=== PATIENT | male | born 1970 | race Caucasian/White ===

== ENCOUNTER 2016-12-20 06:15 | Day surgery (SDC) | payer BC ==
[~2016-12-20] VITALS: Ht 172.7 cm; Wt 122.5 kg
[~2016-12-20 06:15] MED LIST: AMBIEN10 MG PO; ELAVIL25 MG PO; HYDROCODONE-APA1 TAB PO
[2016-12-20 07:01] VITALS: BP 126/81; Ht 172.7 cm; Wt 122.5 kg
--- NOTE | 2016-12-20 14:11 | NUR ---
1400--BLOOD PRESSURE'S READING HIGH, CUFF READJUSTED AND INSTRUCTED PT TO KEEP ARM STRAIGHT AND STILL, BP'S READING LOWER. HGNARAYAN RN
--- NOTE | 2016-12-20 15:01 | NUR ---
1500--LEMON NINILCHIK DRINK GIVEN, PT DENIES FURTHER NEEDS. PADMINI RN
--- NOTE | 2016-12-20 19:28 | NUR ---
1740--PT VOIDS, IV DC'D. PADMINI SHEIKH 175--DISCHARGE INSTRUCTIONS GIVEN, PT VERBALIZES UNDERSTANDING. PT OFF UNIT VIA WC. PADMINI SHEIKH
--- NOTE | 2016-12-26 10:04 | HP ---
PATIENT: JULISSA FREEDMAN MEDICAL RECORD: [id number] ACCOUNT: [id number] LOCATION:DEXTER : 70 ADMISSION DATE: 12/20/16 HISTORY AND PHYSICAL EXAMINATION The patient has intractably symptomatic hemorrhoids. He has been seen in the office. A history and physical examination from the office is on the chart. There have been no changes in his history or physical examination. We reviewed the risks, possible complications and alternatives to the procedure. He elects to proceed. TRANSINT:[id number] Voice Confirmation ID: [id number] DOCUMENT ID: [id number] KATIUSKA CLANCY MD at 1004 CC: ISHAAN SMITH MD [id number] DICTATION DATE: 12/20/16 1231 PLANNING LEAD: 12/20/16 1239 [facility] 12/20/16 [id number] [place] [address]
--- NOTE | 2016-12-26 10:04 | OP ---
PATIENT NAME: JULISSA FREEDMAN MEDICAL RECORD: [id number] :70 LOCATION:D.OPS ADMISSION DATE: SURGEON: MALVIN CLANCY MD DATE OF OPERATION: 12/20/2016 PREOPERATIVE DIAGNOSES: 1. Hematochezia. 2. Intractably symptomatic hemorrhoids. 3. Third-degree anal prolapse of the internal hemorrhoids. 4. Skin tag. POSTOPERATIVE DIAGNOSES: 1. Hematochezia. 2. Intractably symptomatic hemorrhoids. 3. Third-degree internal hemorrhoidal prolapse of the anus. 4. Recurrent chronic anal fissure. 5. [place] skin tag. PROCEDURES: 1. Total colonoscopy to cecum. 2. Procedure for prolapse and hemorrhoids. 3. Excision of sentinel skin tag with closure. 4. Lateral internal sphincterotomy. SURGEON: Malvin Clancy MD. SENIOR [employer] SYSTEMS PROGRAMMER: None. BLOOD LOSS: Minimal. ANESTHESIA: General. COMPLICATIONS: None. The risks, possible complications and alternatives to procedure were explained to the patient. He elected to proceed. OPERATIVE COURSE: The patient was conveyed up to the operating room electively on 12/20/2016. General anesthesia was induced by anesthesia staff. The patient was placed in the [place] position. A digital rectal examination was performed. A colonoscope was inserted through the anus. It was easily advanced to the cecum. I slowly withdrew the endoscope. I irrigated and aspirated extensively. I dragged the folds. I used a combination of normal imaging as well as narrow band imaging to visualize the colonic and rectal chen. I noted no polyps and no masses. The endoscope was then withdrawn under direct vision after a retroflexed view of the anus. The patient was then positioned in the lithotomy position. The anus and perianal areas were sterilely prepped and draped. The buttocks were taped laterally. U-shaped anal retractors were placed. A mature recurrent anal fissure was noted at 6 o'clock. The PPH dilator retractor was placed. The retractor was sewn in place to the OPERATIVE REPORT [id number] JULISSA FREEDMAN surrounding with 2-0 silks. A 2-0 Prolene was then applied circumferentially about 1-cm cephalad to the clear retractor. The PPH stapling device was inserted with the anvil cephalad to the pursestring suture, which was then tightened and tied. The stapling device was engaged. It was held in place for 2 minutes and then fired. It was then withdrawn under direct vision. There was an entire donut of rectal mucosal tissue within the stapling device. Bleeding along the anastomotic staple line was controlled with [id number] 3-0 Vicryls. The clear retractor was removed. Utilizing the Harmonic scalpel, I excised the sentinel tag. There was no damage to the underlying anal musculature. Submucosal flaps were created at the site of the sentinel skin tag removal. I then closed the skin with a running 3-0 Vicryl suture. With the patient in the lithotomy position at 3 o'clock an incision was accomplished over the anal mucosa. I dissected down to the internal sphincter. I divided the majority of the internal sphincter with a 15 blade scalpel. The anal mucosa was then reapproximated with a running 3-0 Vicryl suture. Gelfoam was applied within the anus and rectum. A combination of Marcaine and steroid preparation were used to infiltrate the perianal tissues. A topical anesthetic cream was applied to the external hemorrhoids. The patient was then extubated and conveyed to post-anesthesia care unit where he was in stable condition. He will be dismissed home on [place] as well as Colace and Valium. I will see him in the office in 2-3 weeks. TRANSINT:[id number] Voice Confirmation ID: [id number] DOCUMENT ID: [id number] MALVIN CLANCY MD at 1004 CC: ISHAAN SMITH MD [id number] DICTATION DATE: 12/25/16 1519 SITE PLANNER: 12/26/16 0014 [facility] 12/20/16 [facility] [address] [place] [address]
== END 2016-12-20 17:50 | disposition home or self-care (01) ==
LOC: D.OPS 06:15
DX: K64.2 Third degree hemorrhoids (principal); K64.4 Residual hemorrhoidal skin tags; K92.1 Melena; K60.1 Chronic anal fissure; F17.200 Nicotine dependence, unspecified, uncomplicated; G47.30 Sleep apnea, unspecified; Z01.812 Encounter for preprocedural laboratory examination